=== PATIENT | female | born 1990 | race Caucasian/White ===

== ENCOUNTER 2017-11-19 16:35 | Emergency (ER) | payer OTHER ==
[~2017-11-19] VITALS: Ht 167.6 cm; Wt 81.7 kg
[~2017-11-19 16:35] MED LIST: CIPROFLOXACIN500 M1; IRON240 MG PO; MACROBID 100 M100 M1 PO; MIRENA; NORCO 5-325 TA1 EACH PO; ORTHO TRI-CYCL1 EACH PO; PERCOCET; PYRIDIUM200 MG PO; VICODIN 5-5001 EACH; ZOFRAN4 MG PO; ZOLOFT100 MG PO
[2017-11-19] MEDS ORDERED: ZOLOFT50 MG PO (16:46)
[2017-11-19 16:56] LABS: URINE BILIRUBIN NEGATIVE (Negative); URINE BLOOD NEGATIVE (Negative); URINE CLARITY CLEAR; URINE COLOR YELLOW; URINE GLUCOSE-RANDOM NEGATIVE (Negative); URINE KETONES NEGATIVE (Negative); URINE LEUKOCYTES-REFLEX NEGATIVE (Negative); URINE NITRITE-REFLEX NEGATIVE (Negative); URINE PROTEIN NEGATIVE (Negative); URINE UROBILINOGEN 0.2 E.U./dl (0.2-1.0)
[2017-11-19 17:06] LABS: ABSOLUTE BASOPHILS 0.1 thou/uL (0.0-0.2); ABSOLUTE EOSINOPHILS 0.2 thou/uL (0.0-0.7); ABSOLUTE LYMPHOCYTES 2.5 thou/uL (0.8-5.3); ABSOLUTE MONOCYTES 0.9 thou/uL (0.0-1.2); ABSOLUTE NEUTROPHILS 5.5 thou/uL (1.6-8.1); BASOPHILS 0.6 %; EOSINOPHILS 1.8 %; HEMATOCRIT 36.3 % (37.0-47.0); LYMPHOCYTES 27.4 %; MCH 26.6 pg (26.0-34.0); MCV 80.8 fL (80.0-100.0); MONOCYTES 9.7 %; MPV 8.1 fl. (7.2-11.1); NUCLEATED RBCS 0 /100WBC; PLATELET COUNT* 302 thou/uL (150-400); POLYS 60.5 %; RBC 4.49 mil/uL (4.20-5.00); RDW-CV 14.4 % (10.5-14.5); WBC 9.1 thou/uL (4.0-11.0)
[2017-11-19 17:51] LABS: CALCIUM 8.9 mg/dL (8.5-10.1); CREATININE 0.8 mg/dL (0.6-1.3); POTASSIUM 3.7 mmol/L (3.5-5.1)
[2017-11-19 17:55] LABS: ALBUMIN 3.6 g/dL (3.4-5.0); TOTAL BILIRUBIN 0.3 mg/dL (<0.1-1.0); TOTAL PROTEIN 7.5 g/dL (6.4-8.2)
[2017-11-19] MEDS ORDERED: PHENERGAN 25 MG25 M1 PO (18:39)
[2017-11-19 19:29] VITALS: BP 111/69
== END 2017-11-19 19:33 | disposition home or self-care (01) ==
LOC: M.ERS 16:35
PROVIDERS: Nurse Practitioner Family
DX: R42 Dizziness and giddiness (principal)

== ENCOUNTER 2021-06-23 12:32 | Emergency (ER) | payer OTHER ==
[~2021-06-23] VITALS: Ht 167.6 cm; Wt 77.1 kg
[~2021-06-23 12:32] MED LIST changes: +PHENERGAN 25 MG25 M1 PO; +ZOLOFT50 MG PO
[2021-06-23] MEDS ORDERED: PROPRANOLOL 20M20 MG PO (12:44)
[2021-06-23] MEDS ORDERED: ADDERALL 20 MG20 MG PO (12:44)
[2021-06-23] MEDS ORDERED: HYDROXYZINE HCL25 M2 PO (12:45)
[2021-06-23 12:53] LABS: URINE BILIRUBIN NEGATIVE (Negative); URINE BLOOD 3+ (Negative); URINE CLARITY CLEAR; URINE COLOR YELLOW; URINE GLUCOSE-RANDOM NEGATIVE (Negative); URINE KETONES NEGATIVE (Negative); URINE LEUKOCYTES NEGATIVE (Negative); URINE NITRITE NEGATIVE (Negative); URINE PROTEIN NEGATIVE (Negative); URINE UROBILINOGEN 0.2 E.U./dl (0.2-1.0)
[2021-06-23 13:06] LABS: CASTS None Seen /LPF (None Seen); SQUAMOUS 0-3 Few /LPF (0-3); URINE WBC None Seen /HPF (0-5)
[2021-06-23 13:07] LABS: BACTERIA None Seen /HPF (None Seen); CRYSTALS None Seen /LPF (None Seen); URINE RBC 3-10 Few /HPF (0-2)
[2021-06-23 13:51] LABS: ABSOLUTE EOSINOPHILS 0.2 thou/uL (0.0-0.7); ABSOLUTE LYMPHOCYTES 2.1 thou/uL (0.8-5.3); ABSOLUTE MONOCYTES 0.5 thou/uL (0.0-1.2); ABSOLUTE NEUTROPHILS 3.4 thou/uL (1.6-8.1); BASOPHILS 0.8 %; EOSINOPHILS 2.8 %; HEMATOCRIT 35.2 % (37.0-47.0); HEMOGLOBIN 11.6 gm/dL (12.0-15.0); LYMPHOCYTES 33.6 %; MCH 25.5 pg (26.0-34.0); MCHC 32.9 g/dL (28.0-37.0); MCV 77.5 fL (80.0-100.0); MONOCYTES 8.6 %; MPV 7.3 fl. (7.2-11.1); NUCLEATED RBCS 0 /100WBC; PLATELET COUNT* 318 thou/uL (150-400); POLYS 54.2 %; RBC 4.55 mil/uL (4.20-5.00); RDW-CV 15.2 % (10.5-14.5); WBC 6.2 thou/uL (4.0-11.0)
[2021-06-23 14:10] LABS: CALCIUM 8.8 mg/dL (8.5-10.1); POTASSIUM 4.3 mmol/L (3.5-5.1)
[2021-06-23 14:15] LABS: ALBUMIN 3.8 g/dL (3.4-5.0); TOTAL BILIRUBIN 0.4 mg/dL (<0.1-1.0); TOTAL PROTEIN 7.5 g/dL (6.4-8.2)
[2021-06-23] MEDS ORDERED: PROVERA10 MG PO (14:37)
[2021-06-23 14:46] VITALS: BP 114/70
== END 2021-06-23 14:49 | disposition home or self-care (01) ==
LOC: M.ERS 12:32
PROVIDERS: Physician Assistant
DX: N94.6 Dysmenorrhea, unspecified (principal); Z98.890 Other specified postprocedural states; Z79.899 Other long term (current) drug therapy